=== PATIENT | male | born 1975 | race American Indian/Alaskan Native ===

== ENCOUNTER 2017-07-27 13:12 | Emergency (ER) | payer SELFPAY | END 2017-07-27 13:13 | disposition left against medical advice (07) | LOC: ED 13:12 | DX: R21 Rash and other nonspecific skin eruption (principal); Z53.21 Procedure and treatment not carried out due to patient leaving prior to being seen by health care provider ==

== ENCOUNTER 2017-08-01 15:37 | Emergency (ER) | payer SELFPAY ==
--- NOTE | 2017-08-01 20:47 | Emergency Department Report ---
ED Male HPI - General Chief complaint: Skin Rash Stated complaint: PAIN AND RED IN GROIN AREA Time Seen by Provider: 08/01/17 19:25 Source: patient Mode of arrival: Ambulatory Limitations: No Limitations - History of Present Illness Initial comments: 42-year-old male past medical history none presents with complaint of 2-3 weeks of itchy rash to tip of penis and shaft of penis. Patient denies penile discharge fever chills testicular pain or swelling abdominal pain nausea or vomiting. Patient is awake alert and oriented nontoxic appearing. States that he has had once 2 sex partners in the last 6 months and only 1 without protection once. Patient states that he is noticing some irritated skin near the glans penis. Denies any difficulty urinating denies any difficulty voiding. Onset/Timin -: week(s) Location: penis Severity scale (0 -10): 2 Quality: burning Consistency: intermittent Improves with: none Worsens with: none - Related Data Sexually active: Yes Previous Rx's Medication Instructions Recorded Last Taken Type Clotrimazole 1% [Lotrimin 1%] 1 applicatio TP TID #1 tube 08/01/17 Unknown Rx Hydrocortisone 1% [Hydrocortisone 1 applicatio TP TID PRN #1 tube 08/01/17 Unknown Rx 1% CREAM] Allergies Allergy/AdvReac Type Severity Reaction Status Date / Time No Known Allergies Allergy Unverified 12/10/15 14:22 ED Review of Systems ROS: Stated complaint: PAIN AND RED IN GROIN AREA Other details as noted in HPI Constitutional: denies: chills, fever Eyes: denies: eye pain, eye discharge, vision change ENT: denies: ear pain, throat pain Respiratory: denies: cough, shortness of breath, wheezing Cardiovascular: denies: chest pain, palpitations Endocrine: no symptoms reported Gastrointestinal: denies: abdominal pain, nausea, diarrhea Genitourinary: other (irritation to skin on penis). denies: urgency, dysuria Musculoskeletal: denies: back pain, joint swelling, arthralgia Skin: denies: rash, lesions Neurological: denies: headache, weakness, paresthesias Psychiatric: denies: anxiety, depression Hematological/Lymphatic: denies: easy bleeding, easy bruising ED Past Medical Hx - Past Medical History Previous Medical History?: No - Surgical History Past Surgical History?: No - Social History Smoking Status: Current Every Day Smoker Substance Use Type: None, Alcohol - Medications Home Medications: Home Medications Medication Instructions Recorded Confirmed Last Taken Type Clotrimazole 1% [Lotrimin 1%] 1 applicatio TP TID #1 tube 08/01/17 Unknown Rx Hydrocortisone 1% [Hydrocortisone 1 applicatio TP TID PRN #1 tube 08/01/17 Unknown Rx 1% CREAM] ED Physical Exam - General Limitations: No Limitations General appearance: alert, in no apparent distress - Head Head exam: Present: atraumatic, normocephalic - Eye Eye exam: Present: normal appearance, PERRL, EOMI - ENT ENT exam: Present: mucous membranes moist - Neck Neck exam: Present: normal inspection - Respiratory Respiratory exam: Present: normal lung sounds bilaterally. Absent: respiratory distress - Cardiovascular Cardiovascular Exam: Present: regular rate, normal rhythm. Absent: systolic murmur, diastolic murmur, rubs, gallop - GI/Abdominal GI/Abdominal exam: Present: soft, normal bowel sounds - Rectal Rectal exam: Present: deferred - exam: Present: other (patient has slightly white plaques and slightly irritated skin around gland penis no phimosis paraphimosis no herpetic lesions or vesicles. Clinical balanitis. No scrotal lesions or swelling or tenderness to palpation) - Extremities Exam Extremities exam: Present: normal inspection - Back Exam Back exam: Present: normal inspection - Neurological Exam Neurological exam: Present: alert, oriented X3, CN II-XII intact, normal gait - Psychiatric Psychiatric exam: Present: normal affect, normal mood - Skin Skin exam: Present: warm, dry, intact, normal color. Absent: rash ED Course Vital Signs 08/01/17 15:40 Temperature 97.4 F L Pulse Rate 57 L Respiratory 16 Rate Blood Pressure 111/72 O2 Sat by Pulse 100 Oximetry ED Medical Decision Making - Medical Decision Making A/P: Clinical balanitis 1-clotrimazole and hydrocortisone cream 2-patient educated on signs and symptoms of balanitis. Has no signs and symptoms of urethritis epididymitis herpetic lesions to genitourinary region. Has plaques and patches around shaft of penis consistent with balanitis 3-follow-up with primary care doctor Critical care attestation.: If time is entered above; I have spent that time in minutes in the direct care of this critically ill patient, excluding procedure time. ED Disposition Clinical Impression: Balanitis Disposition: DC-01 TO HOME OR SELFCARE Is pt being admited?: No Does the pt Need Aspirin: No Condition: Stable Instructions: Balanitis (ED) Prescriptions: Clotrimazole 1% [Lotrimin 1%] 1 applicatio TP TID #1 tube Hydrocortisone 1% [Hydrocortisone 1% CREAM] 1 applicatio TP TID PRN #1 tube PRN Reason: Itching Referrals: [facility] [Provider Group] - 3-5 Days [facility] [Outside] - 3-5 Days [facility] [Provider Group] - 3-5 Days Forms: Accompanied Note, Work/School Release Form(ED) Time of Disposition: 20:49
[2017-08-01 21:03] VITALS: BP 121/78
== END 2017-08-01 21:03 | disposition home or self-care (01) ==
LOC: ED 15:37
DX: N48.1 Balanitis (principal); F17.200 Nicotine dependence, unspecified, uncomplicated
CPT/HCPCS: 99282

== ENCOUNTER 2018-02-25 22:43 | Emergency (ER) | payer SELFPAY ==
[2018-02-26 00:25] LABS: Eosinophils # (Auto) 0.1 K/mm3 (0.0-0.4); Eosinophils % (Auto) 3.3 % (0.0-4.3); Hematocrit 41.9 % (35.5-45.6); Hemoglobin 13.7 gm/dl (11.8-15.2); Lymphocytes # (Auto) 1.3 K/mm3 (1.2-5.4); Lymphocytes % (Auto) 41.6 % (13.4-35.0); Mean Corpuscular HGB Conc 33 % (32-34); Mean Corpuscular Hemoglobin 30 pg (28-32); Mean Corpuscular Volume 92 fl (84-94); Monocytes # (Auto) 0.4 K/mm3 (0.0-0.8); Monocytes % (Auto) 13.4 % (0.0-7.3); Platelet Count 177 K/mm3 (140-440); Red Blood Count 4.57 M/mm3 (3.65-5.03)
[2018-02-26] MEDS ORDERED: ALUM-MAG HYDROX-SIMETH 200-200-20MG/5ML PO ONE (00:39)
[2018-02-26] MEDS ORDERED: LIDOCAINE VISCOUS 2% PO ONE (00:39)
[2018-02-26] MEDS ORDERED: ZOFRAN ODT PO ONE (00:39)
[2018-02-26 00:40] LABS: BUN/Creatinine Ratio 7; Blood Urea Nitrogen 8 mg/dL (9-20); Calcium 8.5 mg/dL (8.4-10.2); Hemolysis Index 1
[2018-02-26 01:07] VITALS: BP 98/69
--- NOTE | 2018-02-26 01:33 | Emergency Department Report ---
ED Chest Pain HPI - General Chief Complaint: Chest Pain Stated Complaint: CHEST PAIN AND VOMITINGC Time Seen by Provider: 02/26/18 00:04 Source: patient Mode of arrival: Ambulatory Limitations: No Limitations - History of Present Illness Initial Comments: 3 days of substernal, nonradiating sharp chest pain that is worse with food, nonexertional, nonpleuritic. It is eczema as well as chest. No shortness of breath, leg swelling, cough, fevers. He endorses smoking and drinking. No family history of ACS. Denies illicit drug use. Severity scale (0 -10): 5 - Related Data Previous Rx's Medication Instructions Recorded Last Taken Type Clotrimazole 1% [Lotrimin 1%] 1 applicatio TP TID #1 tube 08/01/17 Unknown Rx Hydrocortisone 1% [Hydrocortisone 1 applicatio TP TID PRN #1 tube 08/01/17 Unknown Rx 1% CREAM] Famotidine [Pepcid] 20 mg PO DAILY #15 tablet 02/26/18 Unknown Rx Allergies Allergy/AdvReac Type Severity Reaction Status Date / Time No Known Allergies Allergy Unverified 12/10/15 14:22 Heart Score - HEART Score History: Slightly suspicious EKG: Non-specific Age: < 45 Risk factors: 1-2 risk factors Troponin: < normal limit HEART Score: 2 ED Review of Systems ROS: Stated complaint: CHEST PAIN AND VOMITINGC Other details as noted in HPI Comment: All other systems reviewed and negative Cardiovascular: chest pain Gastrointestinal: nausea, vomiting ED Past Medical Hx - Past Medical History Previous Medical History?: No - Surgical History Past Surgical History?: No - Social History Smoking Status: Current Some Day Smoker Substance Use Type: Alcohol - Medications Home Medications: Home Medications Medication Instructions Recorded Confirmed Last Taken Type Clotrimazole 1% [Lotrimin 1%] 1 applicatio TP TID #1 tube 08/01/17 Unknown Rx Hydrocortisone 1% [Hydrocortisone 1 applicatio TP TID PRN #1 tube 08/01/17 Unknown Rx 1% CREAM] Famotidine [Pepcid] 20 mg PO DAILY #15 tablet 02/26/18 Unknown Rx ED Physical Exam - General Limitations: No Limitations General appearance: alert, in no apparent distress - Head Head exam: Present: atraumatic, normocephalic - Eye Eye exam: Present: normal appearance - ENT ENT exam: Present: mucous membranes moist - Neck Neck exam: Present: normal inspection - Respiratory Respiratory exam: Present: normal lung sounds bilaterally. Absent: respiratory distress - Cardiovascular Cardiovascular Exam: Present: regular rate, normal rhythm, bradycardia. Absent : systolic murmur, diastolic murmur, rubs, gallop - GI/Abdominal GI/Abdominal exam: Present: soft. Absent: distended, tenderness - Rectal Rectal exam: Present: deferred - Extremities Exam Extremities exam: Present: normal inspection - Back Exam Back exam: Present: normal inspection - Neurological Exam Neurological exam: Present: alert, oriented X3 - Psychiatric Psychiatric exam: Present: normal affect, normal mood - Skin Skin exam: Present: warm, dry, intact, normal color. Absent: rash ED Course Vital Signs 02/25/18 02/25/18 02/26/18 22:53 23:31 00:02 Temperature 98.3 F 98.3 F Pulse Rate 56 L 56 L Respiratory 16 16 20 Rate Blood Pressure 109/78 109/78 Blood Pressure [Left] O2 Sat by Pulse 99 99 Oximetry 02/26/18 00:30 Temperature Pulse Rate 58 L Respiratory 16 Rate Blood Pressure Blood Pressure 98/69 [Left] O2 Sat by Pulse 99 Oximetry - Reevaluation(s) Reevaluation #1: On reevaluation, patient sleeping comfortably in the room. I woke him and he says that his chest pain is still 10. Patient appears to be in no distress. 02/26/18 02:28 ED Medical Decision Making - Lab Data Result diagrams: 02/26/18 00:12 02/26/18 00:12 - EKG Data -: EKG Interpreted by Nv EKG shows normal: sinus rhythm, axis, intervals, QRS complexes, ST-T waves Rate: bradycardia - EKG Data Interpretation: no acute changes - Radiology Data Radiology results: image reviewed - Medical Decision Making 42-year-old male with no significant past medical history presents to the ER with 3 days of substernal chest pain. There is associated with nausea, vomiting. Patient's well-appearing. Vitals significant for bradycardia. Patient appears to be somatic. Heart rate does increase appropriately when patient stands up and walks around. EKG shows sinus bradycardia. No evidence or cervical changes or T-wave inversions. q waves. Troponin is negative 1. Heart score: 2. Low suspicion for ischemic pathology. Patient is perk negative. Low suspicion for PE. Patient given a GI cocktail with improvement of symptoms. Like symptoms related to gastritis versus GERD. He was started on Pepcid and educated on dietary modifications. Clear discharge. - Differential Diagnosis ACS, PTX, esophageal rupture, PE, gastritis, GERD Critical care attestation.: If time is entered above; I have spent that time in minutes in the direct care of this critically ill patient, excluding procedure time. ED Disposition Clinical Impression: Gastritis, Chest pain Disposition: TO HOME OR SELFCARE Is pt being admited?: No Condition: Stable Instructions: Gastritis (ED), Diet for Ulcers and Gastritis (ED), Chest Pain ( ED) Prescriptions: Famotidine [Pepcid] 20 mg PO DAILY #15 tablet Referrals: PRIMARY CARE,MD [Primary Care Provider] - 3-5 Days [facility] [Outside] - 3-5 Days
--- NOTE | 2018-02-26 01:59 | XRay Report ---
FINAL REPORT EXAM: XR CHEST ROUTINE 2V HISTORY: chest pain TECHNIQUE: 2 views of the chest. PRIORS: None. FINDINGS: The cardiomediastinal silhouette appears normal. The lungs are clear. The bones and soft tissues are unremarkable. IMPRESSION: No evidence of acute cardiopulmonary disease
== END 2018-02-26 02:36 | disposition home or self-care (01) ==
LOC: ED 22:43
DX: K29.70 Gastritis, unspecified, without bleeding (principal); R00.1 Bradycardia, unspecified; F17.200 Nicotine dependence, unspecified, uncomplicated
CPT/HCPCS: 36415; 71046; 80048; 84484; 85025; 93005; 93010; Q0162